=== PATIENT | female | born 1970 | race African-American/Black ===

== ENCOUNTER 2019-02-03 17:43 | Emergency (ER) | payer OTHER, MEDICAID ==
[~2019-02-03] VITALS: Ht 177.8 cm; Wt 108.9 kg
--- NOTE | 2019-02-03 17:43 | NUR ---
Patient BIBA ACLS accompanied by Wilfredo ROSE, transferred to bed 2. RN evaluating patient at bedside.
[2019-02-03 17:53] VITALS: BP 165/84
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
--- NOTE | 2019-02-03 18:00 | NUR ---
DR EVALUATING AT BEDSIDE
--- NOTE | 2019-02-03 18:03 | NUR ---
TRIAGE COMPLETED BY MANI JACOBS
[2019-02-03] MEDS ORDERED: LORazepam 2 MG/ML VIAL IVP ONE (18:05)
[2019-02-03 18:39] LABS: BASOPHILS % (AUTO) 0.3 % (0.0-2.0); EOSINOPHILS # (AUTO) 0.1 K/uL (0-0.4); EOSINOPHILS % (AUTO) 1.1 % (0.0-4.0); HEMATOCRIT 39.9 % (36-48); HEMOGLOBIN 13.4 g/dL (12.0-16.0); LYMPHOCYTES # (AUTO) 1.6 K/uL (2.5-16.5); LYMPHOCYTES % (AUTO) 28.6 % (20.5-51.1); MEAN CORPUSCULAR HEMOGLOBIN 32 pg (27-31); MEAN CORPUSCULAR HGB CONC 34 g/dL (33-37); MEAN CORPUSCULAR VOLUME 94.7 fL (80-94); MONOCYTES # (AUTO) 0.3 K/uL (0.8-1.0); MONOCYTES % (AUTO) 6.2 % (1.7-9.3); NEUTROPHILS # (AUTO) 3.5 K/uL (1.8-7.7); NEUTROPHILS % (AUTO) 63.8 % (42.2-75.2); PLATELET COUNT (AUTO) 215 K/uL (140-450); RED BLOOD CELL COUNT(AUTO) 4.21 MIL/uL (4.20-5.40); RED CELL DISTRIBUTION WIDTH 13.5 % (11.6-13.7); WHITE BLOOD COUNT (AUTO) 5.6 K/uL (4.8-10.8)
[2019-02-03 18:51] LABS: ANION GAP 16.3 (8-16); CARBON DIOXIDE 23.9 mmol/L (21-32); CREATININE 0.9 mg/dL (0.6-1.3); POTASSIUM 3.2 mmol/L (3.5-5.1)
[2019-02-03 18:57] LABS: ALBUMIN 3.7 g/dL (3.4-5.0); TOTAL BILIRUBIN 0.4 mg/dL (0.0-1.0)
--- NOTE | 2019-02-03 19:04 | NUR ---
PT ASSISTED TO BATHROOM TO PROVIDE URINE SAMPLE AT THIS TIME.
--- NOTE | 2019-02-03 19:10 | NUR ---
RECEIVED REPORT FROM AM NURSE. PT LAYING IN BED, FAMILY AT BEDSIDE. AOX4, RR EVEN AND UNLABORED. VSS. REPORTS MILD TOLERABLE LOWER BACK PAIN. ALL NEEDS MET.
--- NOTE | 2019-02-03 19:20 | NUR ---
DR BRUSH AT BEDSIDE
[2019-02-03 19:39] VITALS: BP 127/77
--- NOTE | 2019-02-03 19:39 | NUR ---
Patient discharged with v/s stable. Written and verbal after care instructions given and explained. Patient verbalized understanding. Ambulatory with steady gait. All questions addressed prior to discharge. Advised to follow up with PMD.
[2019-02-03 19:43] LABS: APPEARANCE,URINE CLEAR (CLEAR); BILIRUBIN,URINE NEGATIVE (NEGATIVE); BLOOD, URINE 2+ (NEGATIVE); COLOR,URINE YELLOW (YELLOW); LEUKOCYTE ESTERASE ,URINE NEGATIVE (NEGATIVE); NITRITE, URINE NEGATIVE (NEGATIVE); UGLUCOSE NEGATIVE (NEGATIVE)
[2019-02-03 19:48] LABS: BARBITURATE, URINE NEG. ng/ml (NEG <=200); BENZODIAZEPINE, URINE POS. ng/mL (NEG <=200); CANNABINOID, URINE POS. ng/mL (NEG <=50); COCAINE, URINE NEG. ng/mL (NEG <=300); OPIATE, URINE NEG. ng/mL (NEG <=2000); PHENCYCLIDINE SCREEN,URINE NEG. ng/mL (NEG <=25)
[2019-02-03 19:55] LABS: RBC,URINE NONE SEEN /HPF (0-5); WBC,URINE 0-5 /HPF (0-5)
== END 2019-02-03 19:39 | disposition home or self-care (01) ==
LOC: MED 17:43
DX: R56.9 Unspecified convulsions (principal); Z85.3 Personal history of malignant neoplasm of breast
CPT/HCPCS: 36415; 70450; 71045; 80053; 80305; 81001; 81025; 84484; 85025; 93005; 96374; 99284; J2060; Q0092